=== PATIENT | male | born 1950 | race Caucasian/White ===

== ENCOUNTER → 2016-10-17 | Outpatient (CLI) | payer MEDICARE, OTHER | END | disposition home or self-care (01) | LOC: PCVCCLINIC 14:10 | PROVIDERS: ATTEND Internal Medicine | DX: E78.5 Hyperlipidemia, unspecified (principal); R94.31 Abnormal electrocardiogram [ECG] [EKG] | CPT/HCPCS: 80061; 93005; G0463 ==

== ENCOUNTER → 2016-11-07 | Outpatient (CLI) | payer MEDICARE, OTHER ==
[~2016-11-07] MED LIST: REGADENOSON 0.4 MG/5 ML DISP.SYRIN. IV ONE
== END | disposition home or self-care (01) ==
LOC: PCVCIMAG 07:49
PROVIDERS: ATTEND Internal Medicine
DX: I08.1 Rheumatic disorders of both mitral and tricuspid valves (principal); I44.7 Left bundle-branch block, unspecified; R94.31 Abnormal electrocardiogram [ECG] [EKG]
CPT/HCPCS: 78452; 93017; 93306; A9500; J2785

== ENCOUNTER → 2017-04-08 | Outpatient (CLI) | payer MEDICARE, OTHER ==
--- NOTE | 2017-04-09 08:42 | PCVCIMAG ---
APPROVED REPORT Study performed: 04/08/2017 08:37:46 EXAM: Comprehensive 2D, Doppler, and color-flow Echocardiogram Patient Location: Echo lab Status: routine BSA: 2.00 HR: 68 bpmBP: 158/88 mmHg Rhythm: NSR Other Information Study Quality: Good Indications Non-ischemic cardiomyopathy, LBBB, Syncope 2D Dimensions IVSd: 12.04 (7-11mm)LVOT Diam: 19.91 (18-24mm) LVDd: 54.31 mm PWd: 12.42 (7-11mm)Ascending Ao: 29.70 (22-36mm) LVDs: 43.19 (25-40mm) Left Atrium: 43.04 (27-40mm) Aortic Root: 25.14 mm LV Single Plane 4CH: 35.43 % LV Single Plane 2CH: 40.12 %Turner's LVEF: 37.78 % Biplane EF: 36.8 % Volumes Left Atrial Volume (Systole) Single Plane 4CH: 66.98 mLSingle Plane 2CH: 45.14 mL LA ESV Index: 28.00 mL/m2 Aortic Valve AoV Peak Herbert.: 1.32 m/s AO Peak Gr.: 6.94 mmHgLVOT Max P.38 mmHg LVOT Max V: 0.92 m/s BAILEE Vmax: 2.17 cm2 Mitral Valve E/A Ratio: 0.6 MV Decel. Time: 410.60 ms MV E Max Herbert.: 0.59 m/s MV A Herbert.: 0.91 m/s IVRT: 183.39 ms Pulmonary Valve PV Peak Gr.: 2.05 mmHg Pulmonary Vein P Vein S: 0.44 m/sP Vein A: 0.26 m/s P Vein D: 0.26 m/sP Vein A Dur.: 86.5 msec P Vein S/D Ratio: 1.69 Tricuspid Valve TR Peak Herbert.: 2.20 m/s TR Peak Gr.: 19.32 mmHg Left Ventricle The left ventricle is normal size. Global dysfunction Mild concentric left ventricular hypertrophy. Left ventricular systolic function is severely reduced. LVEF 30-35%. Grade I - abnormal relaxation pattern. Right Ventricle The right ventricle is normal size. The right ventricular systolic function is normal. Atria The left atrium size is normal. The right atrium size is normal. Aortic Valve The aortic valve is normal in structure. No aortic regurgitation is present. There is no aortic valvular stenosis. Mitral Valve The mitral valve is normal in structure. Mild mitral regurgitation. No evidence of mitral valve stenosis. Tricuspid Valve The tricuspid valve is normal in structure. Trace tricuspid regurgitation. Pulmonary artery pressure is 27mmHg. Pulmonic Valve The pulmonary valve is normal in structure. There is no pulmonic valvular regurgitation. Great Vessels The aortic root is normal in size. IVC is normal in size and collapses with >50% inspiration Pericardium There is no pericardial effusion. <Conclusion> Left ventricular systolic function is severely reduced. Global dysfunction LVEF 30-35%. Grade I diastolic dysfunction. The aortic valve is normal in structure. No aortic valvular stenosis or insufficiency. The mitral valve is normal in structure. Mild mitral regurgitation. Pulmonary artery pressure of 27mmHg There is no pericardial effusion.
== END | disposition home or self-care (01) ==
LOC: PCVCIMAG 08:22
PROVIDERS: ATTEND Internal Medicine
DX: I44.7 Left bundle-branch block, unspecified (principal); I42.9 Cardiomyopathy, unspecified; R55 Syncope and collapse; I34.0 Nonrheumatic mitral (valve) insufficiency
CPT/HCPCS: 93306

== ENCOUNTER → 2017-09-08 | Outpatient (CLI) | payer MEDICARE, OTHER | END | disposition home or self-care (01) | LOC: PCVCIMAG 10:02 | DX: I42.8 Other cardiomyopathies (principal); R55 Syncope and collapse; I44.7 Left bundle-branch block, unspecified; E78.5 Hyperlipidemia, unspecified; M06.9 Rheumatoid arthritis, unspecified; I08.8 Other rheumatic multiple valve diseases | CPT/HCPCS: 93005; 93306; G0463 ==

== ENCOUNTER → 2018-03-22 | Outpatient (CLI) | payer MEDICARE, OTHER | END | disposition home or self-care (01) | LOC: PCVCCLINIC 13:37 | PROVIDERS: ATTEND Internal Medicine | DX: I42.8 Other cardiomyopathies (principal); I44.7 Left bundle-branch block, unspecified; E78.5 Hyperlipidemia, unspecified; M06.9 Rheumatoid arthritis, unspecified; Z95.810 Presence of automatic (implantable) cardiac defibrillator | CPT/HCPCS: 80061; 93005; G0463 ==